=== PATIENT | female | born 1975 | race Caucasian/White ===

== ENCOUNTER 2016-12-15 09:42 | Outpatient (CLI) | payer OTHER ==
[2016-06-10 14:26] VITALS: BP 129/69
--- NOTE | 2016-12-15 15:03 | Diagnostic Imaging Report ---
SANJEEV SAAVEDRA [facility] [address] [facility] [address] [id number] Report Submission Date: Dec 15, 2016 10:22:07 AM HEARING AID REPAIRER Patient Study Name: JAMAR BAKER Date: Dec 15, 2016 10:08:37 AM HEARING AID REPAIRER Modality Type: CR Gender: F Description: UPPER EXTREMITY : 75 Institution: [facility] Physician: SANJEEV SAAVEDRA Right hand -three views CLINICAL HISTORY: Thumb pain for 3 weeks. FINDINGS: Examination right hand in palmar, lateral and oblique views fails to demonstrate evidence of fracture, dislocation or other bone or joint pathology. Electronically signed on Dec 15, 2016 10:22:07 AM HEARING AID REPAIRER by: Jose TAVAREZ
== END 2016-12-15 10:00 ==
LOC: LAB 09:42
PROVIDERS: ATTEND Family Medicine
DX: E03.9 Hypothyroidism, unspecified (principal); M79.644 Pain in right finger(s)
CPT/HCPCS: 36415; 73130; 84443

== ENCOUNTER → 2018-04-25 | Outpatient (CLI) | payer OTHER ==
[2016-06-10 14:26] VITALS: BP 129/69
== END ==
LOC: LAB 15:05
PROVIDERS: ATTEND Family Medicine
DX: E03.9 Hypothyroidism, unspecified (principal)
CPT/HCPCS: 36415; 84443

== ENCOUNTER 2018-10-31 13:13 | Outpatient (CLI) | payer OTHER ==
[2016-06-10 14:26] VITALS: BP 129/69
== END 2018-10-31 13:15 ==
LOC: LAB 13:13
PROVIDERS: ATTEND Family Medicine
DX: E03.9 Hypothyroidism, unspecified (principal)
CPT/HCPCS: 36415; 84443